=== PATIENT | female | born 1965 | race Caucasian/White ===

== ENCOUNTER 2019-06-04 21:01 | Emergency (ER) | payer OTHER, MEDICARE ==
[~2019-06-04] VITALS: Ht 162.6 cm; Wt 54.5 kg
[~2019-06-04 21:01] MED LIST: CITA20TA2 PO; DICL-194 PO; DICL100G15 TP; FERR325T39 PO; GABA-532 PO; HYDR-3973 PO; NORT25CA5 PO; OMEP40CA13 PO
[2019-06-04 21:11] VITALS: BP 115/86
== END 2019-06-05 01:13 | disposition home or self-care (01) ==
LOC: ER 21:02
DX: S92.902A Unspecified fracture of left foot, initial encounter for closed fracture (principal); H53.9 Unspecified visual disturbance; G62.9 Polyneuropathy, unspecified; M19.90 Unspecified osteoarthritis, unspecified site; G89.29 Other chronic pain; M79.7 Fibromyalgia; M81.0 Age-related osteoporosis without current pathological fracture; F41.9 Anxiety disorder, unspecified; F32.9 Major depressive disorder, single episode, unspecified; Z88.6 Allergy status to analgesic agent; Z79.899 Other long term (current) drug therapy; V89.2XXA Person injured in unspecified motor-vehicle accident, traffic, initial encounter; Y93.89 Activity, other specified; Y92.89 Other specified places as the place of occurrence of the external cause; Y99.8 Other external cause status
CPT/HCPCS: 70450; 70480; 73630; 99284

== ENCOUNTER 2019-06-26 09:38 | Outpatient (CLI) | payer MEDICARE, OTHER ==
[~2019-06-26 09:38] MED LIST changes: +HYDR-4383 PO; +NAPR-56 PO
[2019-06-26 12:10] VITALS: BP 103/60
[2019-07-08] MEDS ORDERED: VENL150C2 PO (11:16)
[2019-07-09] MEDS ORDERED: HYDR-3964 PO (10:30)
== END 2019-06-26 10:32 | disposition home or self-care (01) ==
LOC: EDBD → ORTHO 09:38
PROVIDERS: ATTEND Nurse Practitioner
DX: S42.002D Fracture of unspecified part of left clavicle, subsequent encounter for fracture with routine healing (principal); S52.592D Other fractures of lower end of left radius, subsequent encounter for closed fracture with routine healing; M79.89 Other specified soft tissue disorders; I10 Essential (primary) hypertension; E11.9 Type 2 diabetes mellitus without complications; F32.9 Major depressive disorder, single episode, unspecified; K21.9 Gastro-esophageal reflux disease without esophagitis; M81.0 Age-related osteoporosis without current pathological fracture; Z79.899 Other long term (current) drug therapy; Z88.8 Allergy status to other drugs, medicaments and biological substances; Z72.89 Other problems related to lifestyle; X58.XXXD Exposure to other specified factors, subsequent encounter
CPT/HCPCS: 73000; 73110; 73630; G0463

== ENCOUNTER 2019-07-10 11:23 | Day surgery (SDC) | payer MEDICARE ==
[2019-07-08 12:01] LABS: BASOPHILS # (AUTO) 0.1 X10'3 (0-0.2); BASOPHILS % (AUTO) 1.1 % (0-1); EOSINOPHILS # (AUTO) 0.2 X10'3 (0-0.9); EOSINOPHILS % (AUTO) 3.7 % (0-6); LYMPHOCYTES # (AUTO) 2.1 X10'3 (1.1-4.8); LYMPHOCYTES % (AUTO) 36.7 % (21-51); MEAN CORPUSCULAR HEMOGLOBIN 31.5 PG (27.0-31.0); MEAN CORPUSCULAR HGB CONC 33.4 g/dL (33.0-36.5); MEAN CORPUSCULAR VOLUME 94.2 FL (78-98); MEAN PLATELET VOLUME 7.4 FL (7.4-10.4); MONOCYTES # (AUTO) 0.6 X10'3 (0-0.9); MONOCYTES % (AUTO) 10.1 % (2-12); NEUTROPHILS # (AUTO) 2.7 X10'3 (1.8-7.7); NEUTROPHILS % (AUTO) 48.4 % (42-75); PRE OP HEMATOCRIT 40.8 % (35.0-45.0); PRE OP HEMOGLOBIN 13.6 g/dL (12.0-16.0); PRE OP PLATELET COUNT 291 X10'3 (140-440); RED BLOOD COUNT 4.33 X10'6 (4.20-5.60); RED CELL DISTRIBUTION WIDTH 14.1 % (11.5-14.5)
[2019-07-08 12:18] LABS: ALBUMIN 3.6 G/DL (3.4-5.0); ALBUMIN/GLOBULIN RATIO 1.3 (1.1-1.5); ALKALINE PHOSPHATASE 87 IU/L (46-116); BLOOD UREA NITROGEN 11 MG/DL (7-18); BUN/CREATININE RATIO 15.3 (6.6-38.0); CALCIUM 8.2 MG/DL (8.5-10.1); CHLORIDE 105 MMOL/L (99-107); CREATININE 0.72 MG/DL (0.40-0.90); PRE OP ALT 23 U/L (30-65); PRE OP ANION GAP 8 (8-16); PRE OP AST 17 U/L (10-37); PRE OP BILIRUB, TOTAL 0.3 MG/DL (0.0-1.0); PRE OP GLUCOSE 84 MG/DL (70-104); PRE OP POTASSIUM 4.4 MMOL/L (3.4-5.1); PRE OP SODIUM 142 MMOL/L (135-145); TOTAL CARBON DIOXIDE 29.5 MMOL/L (24-32); TOTAL PROTEIN 6.4 G/DL (6.4-8.2); eGFR 84 ML/MIN
[2019-07-10] VITALS (7 sets, daily range): BP systolic 92–134; BP diastolic 61–80
[~2019-07-10] VITALS: Ht 162.6 cm; Wt 53.3 kg
[~2019-07-10 11:23] MED LIST changes: -CITA20TA2 PO; +Cefazolin 2GM/100ML NS IVPB 100 ML IV ONE; -DICL-194 PO; -DICL100G15 TP; -FERR325T39 PO; -GABA-532 PO; +HYDR-3964 PO; -HYDR-3973 PO; -HYDR-4383 PO; -NAPR-56 PO; -NORT25CA5 PO; +VANCOMYCIN INJ 1000 MG in NORMAL SALINE 250ml IV.SOLN IV ONE; +VENL150C2 PO; +cefazolin/dext.iso 2gm/100ml 100 ML IV ONE; +famotidine 10mg tablet PO ONE; +famotidine 20mg tablet PO ONE; +ringers solution, lacted 1,000 ML IV SCH
[2019-07-10] MEDS ORDERED: ceFAZolin 1000mg inj ONE ×2 (14:09→17:02)
[2019-07-10] MEDS ORDERED: BUPIVAcaine/PF 2.5 mg/ml (0.25%) 30ml vial ONE ×2 (14:09→17:03)
[2019-07-10] MEDS ORDERED: meperidine/PF 25mg/ml syringe ONE (17:58)
[2019-07-10] MEDS ORDERED: midazolam 2 mg/2 ml injection ONE (18:56)
[2019-07-10] MEDS ORDERED: fentaNYL/PF 50MCG/1 ML 2ML syringe ONE ×2 (18:56→20:03)
[2019-07-10] MEDS ORDERED: LIDOcaine 2% (20mg/ml) 5ml vial ONE (18:58)
[2019-07-10] MEDS ORDERED: propofol inj 20 ML IV ONE (18:58)
[2019-07-10] MEDS ORDERED: dexamethasone sod phosphate 4mg/ml inj. ONE (18:58)
[2019-07-10] MEDS ORDERED: ROPIVAcaine 0.5% (5mg/ml) 30ml vial ONE ×2 (19:00)
[2019-07-10] MEDS ORDERED: ondansetron/PF 4mg/2ml inj ONE (19:00)
[2019-07-10] MEDS ORDERED: ringers solution, lacted 1,000 ML IV SCH (19:03)
[2019-07-10] MEDS ORDERED: fentaNYL/PF 50MCG/1 ML 2ML syringe IV PRN ×2 (19:05)
[2019-07-10] MEDS ORDERED: morphine 4 MG/ML inj SYRINge IV PRN ×2 (19:05)
[2019-07-10] MEDS ORDERED: ondansetron/PF 4mg/2ml inj IV PRN (19:05)
[2019-07-10] MEDS ORDERED: hydrALAZINE 20mg/ml inj. IV PRN (19:05)
[2019-07-10] MEDS ORDERED: labetalol 20mg/4ml (5mg/ml) syringe IV PRN (19:05)
[2019-07-10] MEDS ORDERED: phenylephrine 10mg/ml inj. ONE (19:08)
[2019-07-10] MEDS ORDERED: sevoflurane 250ml liquid IH ONE (19:08)
[2019-07-10] MEDS ORDERED: ketorolac trometh. 30mg/ml inj. ONE (19:54)
[2019-07-10] MEDS ORDERED: acetaminophen 1,000mg/100ml IV 100 ML IV ONE (19:55)
--- NOTE | 2019-07-10 21:00 | NUR ---
Received from OR via [facility], accompanied by Anesthesiologist DR. HALEY and report given by Anesthesiolgist. PT ARRIVED TO RR SLEEPY, O2 VIA MASK AT 10L VIA MASK. DRESSING TO SHOULDER CDI. SUMNER EXCEPT LT SHOULDER WNL, GOOD CSM. PULSES AND TOMBSTONE ERECTOR WNL.
--- NOTE | 2019-07-10 22:00 | NUR ---
PT FULLY AWAKE, DC READY, IV DC'D. DC INSTR READ TO PT WITH NERVE BLOCK INSTR DISCUSSED WITH PT WELL. PT DRESSED SELF. TO POV VIA WC FOR DC HOME. DRIVING
== END 2019-07-10 22:00 | disposition home or self-care (01) ==
LOC: PAS 11:23
PROVIDERS: ATTEND Orthopaedic Surgery
DX: S42.022A Displaced fracture of shaft of left clavicle, initial encounter for closed fracture (principal); G89.18 Other acute postprocedural pain; M81.0 Age-related osteoporosis without current pathological fracture; M19.90 Unspecified osteoarthritis, unspecified site; K21.9 Gastro-esophageal reflux disease without esophagitis; F32.9 Major depressive disorder, single episode, unspecified; Z88.5 Allergy status to narcotic agent; Z79.899 Other long term (current) drug therapy; Z96.653 Presence of artificial knee joint, bilateral; Z98.51 Tubal ligation status; Z98.84 Bariatric surgery status; Z98.890 Other specified postprocedural states; X58.XXXA Exposure to other specified factors, initial encounter; Y93.89 Activity, other specified; Y92.89 Other specified places as the place of occurrence of the external cause; Y99.8 Other external cause status; Z87.891 Personal history of nicotine dependence
CPT/HCPCS: 23515; 36415; 64413; 64415; 80053; 82948; 85025; C1713; J0131; J0690; J1100; J1885; J2001; J2175; J2250; J2370; J2405; J2704; J3010; J3370; J3490; J7120; A4215; A4565; A4618; A7000; J2795

== ENCOUNTER 2019-07-18 15:12 | Outpatient (CLI) | payer MEDICARE ==
[~2019-07-18 15:12] MED LIST changes: -Cefazolin 2GM/100ML NS IVPB 100 ML IV ONE; -VANCOMYCIN INJ 1000 MG in NORMAL SALINE 250ml IV.SOLN IV ONE; -cefazolin/dext.iso 2gm/100ml 100 ML IV ONE; -famotidine 10mg tablet PO ONE; -famotidine 20mg tablet PO ONE; -ringers solution, lacted 1,000 ML IV SCH
== END 2019-07-18 17:30 | disposition home or self-care (01) ==
LOC: ORTHO 15:12
PROVIDERS: ATTEND Orthopaedic Surgery
DX: S52.592D Other fractures of lower end of left radius, subsequent encounter for closed fracture with routine healing (principal); X58.XXXD Exposure to other specified factors, subsequent encounter
CPT/HCPCS: 73110; G0463

== ENCOUNTER 2019-08-08 15:09 | Outpatient (CLI) | payer MEDICARE | END 2019-08-08 16:52 | disposition home or self-care (01) | LOC: ORTHO 15:09 | PROVIDERS: ATTEND Orthopaedic Surgery | DX: S52.592D Other fractures of lower end of left radius, subsequent encounter for closed fracture with routine healing (principal); S42.002D Fracture of unspecified part of left clavicle, subsequent encounter for fracture with routine healing; M85.88 Other specified disorders of bone density and structure, other site; X58.XXXD Exposure to other specified factors, subsequent encounter | CPT/HCPCS: 73000; 73110; G0463 ==

== ENCOUNTER 2019-09-03 15:17 | Outpatient (CLI) | payer MEDICARE | END 2019-09-03 16:30 | disposition home or self-care (01) | LOC: ORTHO 15:17 | PROVIDERS: ATTEND Orthopaedic Surgery | DX: S52.502D Unspecified fracture of the lower end of left radius, subsequent encounter for closed fracture with routine healing (principal); S42.032D Displaced fracture of lateral end of left clavicle, subsequent encounter for fracture with routine healing; X58.XXXD Exposure to other specified factors, subsequent encounter | CPT/HCPCS: 73000; 73110; G0463 ==

== ENCOUNTER 2021-03-21 17:58 | Emergency (ER) | payer MEDICARE ==
[~2021-03-21] VITALS: Ht 162.6 cm; Wt 54.5 kg
[~2021-03-21 17:58] MED LIST changes: -OMEP40CA13 PO; +OMEP40CA21 PO
[2021-03-21 18:20] VITALS: BP 136/98
== END 2021-03-21 20:42 | disposition home or self-care (01) ==
LOC: ER 17:59
DX: R50.9 Fever, unspecified (principal); Z20.822 Contact with and (suspected) exposure to COVID-19; R05 Cough; R51.9 Headache, unspecified; R43.8 Other disturbances of smell and taste; K21.9 Gastro-esophageal reflux disease without esophagitis; M81.0 Age-related osteoporosis without current pathological fracture; F12.90 Cannabis use, unspecified, uncomplicated; Z98.51 Tubal ligation status; Z98.890 Other specified postprocedural states; Z88.8 Allergy status to other drugs, medicaments and biological substances; Z79.899 Other long term (current) drug therapy
CPT/HCPCS: 87635; 99283; C9803